=== PATIENT | male | born 1970 | race Two or more races ===

== ENCOUNTER 2021-10-06 01:02 | Inpatient (IN) | payer MEDICAID ==
[~2021-10-06] VITALS: Ht 175.3 cm; Wt 93.6 kg
[2021-10-06 02:24] LABS: Basophils # (auto) 0.2 10 ^3/uL (0-0.2); Basophils % (auto) 2.1 % (0.0-2.0); Eosinophils # (auto) 0.3 10 ^3/uL (0-0.8); Eosinophils % (auto) 3.9 % (0.0-7.0); Hematocrit 47.6 % (41.0-53.0); Hemoglobin 16.5 g/dL (13.5-17.5); Lymphocytes # (auto) 1.8 10 ^3/uL (0.4-5.4); Lymphocytes % (auto) 23.2 % (10.0-50.0); Mean Corpuscular Hemoglobin 32.6 pg (28.0-32.0); Mean Corpuscular Hgb Conc. 34.7 g/dL (32.0-36.0); Mean Corpuscular Volume 93.9 fL (80.0-100.0); Monocytes # (auto) 0.6 10 ^3/uL (0-1.3); Monocytes % (auto) 8.2 % (0.0-12.0); Neutrophils # (auto) 4.9 10 ^3/uL (1.6-8.6); Neutrophils % (auto) 62.6 % (37.0-80.0); Nucleated Red Blood Cells % 0.1 %; Red Blood Cells 5.07 10^6/uL (4.5-5.90); Red Cell Distribution Width 13.7 % (11.8-14.3); White Blood Cell 7.8 10^3/uL (4.4-10.8)
[2021-10-06 02:41] LABS: BUN/Creatinine Ratio 13.9; Potassium 3.9 mmol/L (3.5-5.1)
[2021-10-06 02:44] LABS: Bilirubin, Total 0.5 mg/dL (0.2-1.0); Total Protein 7.6 g/dL (6.4-8.2)
[2021-10-06] MEDS ORDERED: amLODIPine BESYLATE 5 MG TAB PO ONE (02:45)
[2021-10-06] MEDS ORDERED: LABETALOL HCL 5 MG/ML 4ML SYRINGE IV ONE (03:30)
[2021-10-06] MEDS ORDERED: InsuLIN REG 1unit/0.01ml Soln (100units/ml) IV ONE (03:30)
[2021-10-06] MEDS ORDERED: ASPirin 325 MG TAB PO ONE (03:45)
[2021-10-06] MEDS ORDERED: MORPHINE SULFATE INJ 2 MG/ml SYRG IV PRN (04:00)
[2021-10-06] MEDS ORDERED: DEXTROSE (50%) 50ML SYRG IV PRN (04:00)
[2021-10-06] MEDS ORDERED: ACETAMINOPHEN 325 MG TAB PO PRN (04:00)
[2021-10-06] MEDS ORDERED: MORPHINE SULFATE 4 MG/ML SYR/VIAL IV PRN (04:00)
[2021-10-06] MEDS ORDERED: ONDANSETRON HCL 4 MG/2 ML VIAL IV PRN (04:00)
[2021-10-06] MEDS: ACCU-CHEK COMFORT CURVE STRIP VI SCH ×5 (04:00→20:00)
[2021-10-06] MEDS: SODIUM CHLORIDE 0.9% 1,000 ML IV SCH ×2 (04:00→05:00)
[2021-10-06] MEDS ORDERED: NITROGLYCERIN 0.4 MG SL TAB SL PRN ×2 (04:00)
[2021-10-06] MEDS ORDERED: ZOLPIDEM TARTRATE 5 MG TAB PO PRN (04:00)
[2021-10-06] MEDS ORDERED: LORazepam 0.5 MG TAB PO PRN (04:00)
[2021-10-06] MEDS: InsuLIN REG 1unit/0.01ml Soln (100units/ml) SC SCH ×5 (05:00→20:00)
[2021-10-06 09:06] LABS: Basophils # (auto) 0.2 10 ^3/uL (0-0.2); Basophils % (auto) 2.3 % (0.0-2.0); Eosinophils # (auto) 0.2 10 ^3/uL (0-0.8); Eosinophils % (auto) 2.5 % (0.0-7.0); Hematocrit 46.9 % (41.0-53.0); Lymphocytes # (auto) 1.2 10 ^3/uL (0.4-5.4); Lymphocytes % (auto) 13.7 % (10.0-50.0); Mean Corpuscular Hemoglobin 31.9 pg (28.0-32.0); Mean Corpuscular Hgb Conc. 34.1 g/dL (32.0-36.0); Mean Corpuscular Volume 93.6 fL (80.0-100.0); Monocytes # (auto) 0.5 10 ^3/uL (0-1.3); Monocytes % (auto) 5.2 % (0.0-12.0); Neutrophils # (auto) 6.7 10 ^3/uL (1.6-8.6); Neutrophils % (auto) 76.3 % (37.0-80.0); Red Blood Cells 5.01 10^6/uL (4.5-5.90); Red Cell Distribution Width 13.5 % (11.8-14.3); White Blood Cell 8.8 10^3/uL (4.4-10.8)
[2021-10-06 09:22] VITALS: BP 153/98
[2021-10-06 09:27] LABS: BUN/Creatinine Ratio 13.3; Calcium 8.5 mg/dL (8.5-10.1); Potassium 3.5 mmol/L (3.5-5.1)
[2021-10-06] MEDS ORDERED: CLOPIDOGREL BISULFATE 75 MG TAB PO SCH (10:00)
[2021-10-06] MEDS: ASPirin 81 mg TAB PO SCH (10:49)
[2021-10-06] MEDS: DOCUSATE SOD 100 MG CAP PO SCH (10:49)
[2021-10-06] MEDS: METOPROLOL TARTRATE 25 MG TAB PO SCH ×2 (10:51→22:42)
[2021-10-06] MEDS: LISINOPRIL 10 MG TAB PO SCH (10:51)
[2021-10-06] MEDS: ENOXAPARIN SOD 80 MG/0.8ML SYRINGE SC SCH ×2 (10:52→22:32)
[2021-10-06 11:01] VITALS: BP 159/98
[2021-10-06 11:55] VITALS: BP 164/107
[2021-10-06 16:00] VITALS: BP_SYST 147; BP_SYST 161; BP_DIAS 105; BP_DIAS 106
[2021-10-06] MEDS ORDERED: METF-370 PO (18:36)
[2021-10-06] MEDS ORDERED: ENAL2.5T7 PO (18:36)
[2021-10-06 22:00] VITALS: BP 160/102
[2021-10-06] MEDS ORDERED: INSULIN LANTUS (GLARGINE) 1 /0.01ml (100units/ml) SC SCH (22:00)
[2021-10-06] MEDS ORDERED: ATORVASTATIN 20 MG TAB PO SCH (22:00)
[2021-10-07] VITALS: BP 131/60
[2021-10-07] MEDS: InsuLIN REG 1unit/0.01ml Soln (100units/ml) SC SCH ×5 (01:08→16:11)
[2021-10-07] MEDS: SODIUM CHLORIDE 0.9% 1,000 ML IV SCH (03:54)
[2021-10-07] MEDS: ACCU-CHEK COMFORT CURVE STRIP VI SCH ×5 (03:55→15:51)
[2021-10-07 05:00] VITALS: BP 150/103
[2021-10-07 08:00] VITALS: BP 163/110
[2021-10-07] MEDS: ASPirin 81 mg TAB PO SCH (09:31)
[2021-10-07] MEDS: ENOXAPARIN SOD 80 MG/0.8ML SYRINGE SC SCH (09:31)
[2021-10-07] MEDS: LISINOPRIL 10 MG TAB PO SCH (09:32)
[2021-10-07] MEDS: DOCUSATE SOD 100 MG CAP PO SCH (09:32)
[2021-10-07] MEDS: METOPROLOL TARTRATE 25 MG TAB PO SCH (09:33)
[2021-10-07] MEDS ORDERED: amLODIPine BESYLATE 5 MG TAB PO SCH (10:00)
[2021-10-07] MEDS ORDERED: hydrALAZINE HCL 20 MG/ML VL IV PRN (12:00)
[2021-10-07 13:00] VITALS: BP 148/102
[2021-10-07] MEDS ORDERED: ATOR20TA50 PO (13:05)
[2021-10-07] MEDS ORDERED: LISI-716 PO (13:05)
[2021-10-07] MEDS ORDERED: METF-370 PO (13:05)
[2021-10-07] MEDS ORDERED: ASPI-325 PO (13:05)
[2021-10-07] MEDS ORDERED: MET25T PO (13:05)
[2021-10-07] MEDS ORDERED: AML5T PO (13:05)
[2021-10-07 16:00] VITALS: BP 146/102
[2021-10-07 17:26] VITALS: BP 146/102
[2021-10-08] MEDS ORDERED: LISINOPRIL 10 MG TAB PO SCH (10:00)
== END 2021-10-07 18:18 | disposition home or self-care (01) | DRG 420 ==
LOC: ER 01:02 → TELE 03:59 → TELE-CENTR 08:11 → TELE-WESTW 18:07
PROVIDERS: ADMIT Hospitalist; ATTEND Family Medicine
DX: E11.65 Type 2 diabetes mellitus with hyperglycemia (principal); E66.9 Obesity, unspecified; R77.8 Other specified abnormalities of plasma proteins; I10 Essential (primary) hypertension; Z20.822 Contact with and (suspected) exposure to COVID-19; Z68.30 Body mass index [BMI] 30.0-30.9, adult
CPT/HCPCS: 36415; 71045; 80048; 80053; 82962; 83036; 84484; 85025; 93005; 93306; 96374; 96375; 99291; G0378; J1815; J3490

== ENCOUNTER 2021-12-29 01:05 | Inpatient (IN) | payer MEDICAID ==
[~2021-12-29] VITALS: Ht 170.2 cm; Wt 91.0 kg
[~2021-12-29 01:05] MED LIST: AML5T PO; ASPI-325 PO; ATOR20TA50 PO; LISI-716 PO; MET25T PO; METF-370 PO
[2021-12-29 01:36] LABS: Basophils # (auto) 0.1 10 ^3/uL (0-0.2); Eosinophils # (auto) 0.3 10 ^3/uL (0-0.8); Eosinophils % (auto) 2.2 % (0.0-7.0); Hematocrit 46.4 % (41.0-53.0); Lymphocytes # (auto) 2.1 10 ^3/uL (0.4-5.4); Lymphocytes % (auto) 17.7 % (10.0-50.0); Mean Corpuscular Hemoglobin 32.1 pg (28.0-32.0); Mean Corpuscular Hgb Conc. 34.5 g/dL (32.0-36.0); Mean Corpuscular Volume 93.1 fL (80.0-100.0); Monocytes # (auto) 0.6 10 ^3/uL (0-1.3); Monocytes % (auto) 5.1 % (0.0-12.0); Neutrophils # (auto) 8.7 10 ^3/uL (1.6-8.6); Nucleated Red Blood Cells % 0.1 %; Red Blood Cells 4.99 10^6/uL (4.5-5.90); Red Cell Distribution Width 13.7 % (11.8-14.3); White Blood Cell 11.7 10^3/uL (4.4-10.8)
[2021-12-29 01:57] LABS: Albumin 3.9 g/dL (3.4-5.0); Magnesium 1.9 mg/dL (1.6-2.6)
[2021-12-29 02:00] LABS: Bilirubin, Total 0.5 mg/dL (0.2-1.0); Total Protein 7.7 g/dL (6.4-8.2)
[2021-12-29] MEDS ORDERED: MORPHINE SULFATE 4 MG/ML SYR/VIAL IV ONE (04:30)
[2021-12-29] MEDS ORDERED: SODIUM CHLORIDE 0.9% 500 ML IV ONE (05:15)
[2021-12-29] MEDS ORDERED: ASPirin 81 mg TAB PO ONE (05:15)
[2021-12-29] MEDS ORDERED: SODIUM CHLORIDE 0.9% 1,000 ML IV SCH (07:30)
[2021-12-29] MEDS ORDERED: DEXTROSE (50%) 50ML SYRG IV PRN (07:30)
[2021-12-29] MEDS ORDERED: TEMAZEPAM 15 MG CAP PO PRN (07:30)
[2021-12-29] MEDS ORDERED: ACETAMINOPHEN 325 MG TAB PO PRN (07:30)
[2021-12-29] MEDS ORDERED: hydrALAZINE HCL 20 MG/ML VL IV PRN (07:30)
[2021-12-29] MEDS ORDERED: MORPHINE SULFATE INJ 2 MG/ml SYRG IV PRN ×2 (07:30→07:45)
[2021-12-29] MEDS ORDERED: ONDANSETRON HCL 4 MG/2 ML VIAL IV PRN (07:30)
[2021-12-29] MEDS ORDERED: DOCUSATE SOD 100 MG CAP PO PRN (07:30)
[2021-12-29] MEDS ORDERED: NITROGLYCERIN 0.4 MG SL TAB SL PRN (07:45)
[2021-12-29 08:02] LABS: Basophils # (auto) 0.1 10 ^3/uL (0-0.2); Basophils % (auto) 1.1 % (0.0-2.0); Eosinophils # (auto) 0.2 10 ^3/uL (0-0.8); Eosinophils % (auto) 2.3 % (0.0-7.0); Hematocrit 44.3 % (41.0-53.0); Hemoglobin 14.9 g/dL (13.5-17.5); Lymphocytes # (auto) 2.3 10 ^3/uL (0.4-5.4); Lymphocytes % (auto) 27.4 % (10.0-50.0); Mean Corpuscular Hemoglobin 31.4 pg (28.0-32.0); Mean Corpuscular Hgb Conc. 33.7 g/dL (32.0-36.0); Mean Corpuscular Volume 93.1 fL (80.0-100.0); Monocytes # (auto) 0.5 10 ^3/uL (0-1.3); Neutrophils # (auto) 5.3 10 ^3/uL (1.6-8.6); Neutrophils % (auto) 63.2 % (37.0-80.0); Nucleated Red Blood Cells % 0.1 %; Red Blood Cells 4.76 10^6/uL (4.5-5.90); Red Cell Distribution Width 13.6 % (11.8-14.3); White Blood Cell 8.4 10^3/uL (4.4-10.8)
[2021-12-29 08:17] LABS: Potassium 3.9 mmol/L (3.5-5.1)
[2021-12-29 08:25] LABS: Albumin 3.7 g/dL (3.4-5.0); Bilirubin, Total 0.6 mg/dL (0.2-1.0); Calcium 8.8 mg/dL (8.5-10.1); Total Protein 7.6 g/dL (6.4-8.2)
[2021-12-29] MEDS: HYDROcodone-ACET 5/325MG TAB PO PRN ×2 (08:28→23:01)
[2021-12-29] MEDS: METOPROLOL TARTRATE 25 MG TAB PO SCH ×2 (09:49→22:57)
[2021-12-29] MEDS: ASPirin 81 mg TAB PO SCH (09:50)
[2021-12-29] MEDS: InsuLIN REG 1unit/0.01ml Soln (100units/ml) SC SCH ×3 (11:04→23:24)
[2021-12-29] MEDS: ACCU-CHEK COMFORT CURVE STRIP VI SCH ×3 (11:07→22:00)
[2021-12-29 17:37] LABS: Cholesterol 154 mg/dL (< 200); HDL Cholesterol 56 mg/dL (40-59); LDL Cholesterol 85 mg/dL (< 100); Triglycerides 121 mg/dL (< 150)
[2021-12-29 22:26] LABS: Alcohol, Urine < 3.0 mg/dL (0-10); Amphetamine Screen, Urine NEGATIVE (NEGATIVE); Barbiturate Scree,Urine NEGATIVE (NEGATIVE); Benzodiazephine Screen, Urine NEGATIVE (NEGATIVE); Cannabinoid Screen, Urine NEGATIVE (NEGATIVE); Cocaine Screen, Urine NEGATIVE (NEGATIVE); Opiate Scree,Urine NEGATIVE (NEGATIVE); Phencyclidine Screen, Urine NEGATIVE (NEGATIVE)
[2021-12-29] MEDS: ATORVASTATIN 20 MG TAB PO SCH (22:56)
[2021-12-29] MEDS: PANTOPRAZOLE 40 MG/10 ML VIAL INJ IV SCH (23:24)
[2021-12-30] MEDS: SUCRALFATE 1 GM/10 ML ORAL SUSP PO SCH ×3 (05:38→17:13)
[2021-12-30] MEDS: ACCU-CHEK COMFORT CURVE STRIP VI SCH ×4 (05:40→21:06)
[2021-12-30] MEDS: InsuLIN REG 1unit/0.01ml Soln (100units/ml) SC SCH ×4 (05:58→21:59)
[2021-12-30 06:04] LABS: Basophils # (auto) 0.1 10 ^3/uL (0-0.2); Basophils % (auto) 2.2 % (0.0-2.0); Eosinophils # (auto) 0.3 10 ^3/uL (0-0.8); Eosinophils % (auto) 4.7 % (0.0-7.0); Hematocrit 46.3 % (41.0-53.0); Hemoglobin 15.7 g/dL (13.5-17.5); Lymphocytes # (auto) 2.2 10 ^3/uL (0.4-5.4); Lymphocytes % (auto) 33.1 % (10.0-50.0); Mean Corpuscular Hemoglobin 31.6 pg (28.0-32.0); Mean Corpuscular Volume 93.2 fL (80.0-100.0); Monocytes # (auto) 0.5 10 ^3/uL (0-1.3); Monocytes % (auto) 7.1 % (0.0-12.0); Neutrophils # (auto) 3.5 10 ^3/uL (1.6-8.6); Neutrophils % (auto) 52.9 % (37.0-80.0); Nucleated Red Blood Cells % 0.2 %; Red Blood Cells 4.97 10^6/uL (4.5-5.90); Red Cell Distribution Width 13.6 % (11.8-14.3); White Blood Cell 6.6 10^3/uL (4.4-10.8)
[2021-12-30 06:23] LABS: Calcium 8.5 mg/dL (8.5-10.1)
[2021-12-30 06:26] LABS: Albumin 3.3 g/dL (3.4-5.0)
[2021-12-30 06:29] LABS: Bilirubin, Total 0.8 mg/dL (0.2-1.0); Total Protein 6.6 g/dL (6.4-8.2)
[2021-12-30] MEDS: PANTOPRAZOLE 40 MG/10 ML VIAL INJ IV SCH ×2 (09:57→21:53)
[2021-12-30] MEDS: METOPROLOL TARTRATE 25 MG TAB PO SCH ×2 (09:58→21:52)
[2021-12-30] MEDS: ASPirin 81 mg TAB PO SCH (09:59)
[2021-12-30] MEDS: HYDROcodone-ACET 5/325MG TAB PO PRN (09:59)
[2021-12-30 12:07] VITALS: BP 148/93
[2021-12-30 12:33] VITALS: BP 148/93
[2021-12-30 16:40] VITALS: BP 139/84
[2021-12-30 20:21] VITALS: BP 148/93
[2021-12-30] MEDS: ATORVASTATIN 20 MG TAB PO SCH (21:53)
[2021-12-30 22:00] VITALS: BP 144/96
[2021-12-31 05:00] VITALS: BP 130/90
[2021-12-31] MEDS: SUCRALFATE 1 GM/10 ML ORAL SUSP PO SCH ×3 (06:01→17:14)
[2021-12-31] MEDS: ACCU-CHEK COMFORT CURVE STRIP VI SCH ×5 (06:01→21:45)
[2021-12-31] MEDS: InsuLIN REG 1unit/0.01ml Soln (100units/ml) SC SCH ×4 (06:05→21:59)
[2021-12-31 08:30] VITALS: BP 123/96
[2021-12-31] MEDS: HYDROcodone-ACET 5/325MG TAB PO PRN (08:49)
[2021-12-31] MEDS: PANTOPRAZOLE 40 MG/10 ML VIAL INJ IV SCH (08:55)
[2021-12-31] MEDS: METOPROLOL TARTRATE 25 MG TAB PO SCH ×2 (08:56→22:12)
[2021-12-31] MEDS: ASPirin 81 mg TAB PO SCH (08:56)
[2021-12-31 13:15] VITALS: BP 122/78
[2021-12-31] MEDS: GABAPENTIN 100 MG CAP PO SCH ×2 (15:15→21:45)
[2021-12-31] MEDS: MAGNESIUM SULFATE 1GM/100ML 100 ML IV SCH ×2 (16:08→17:14)
[2021-12-31 16:50] VITALS: BP 128/94
[2021-12-31] MEDS: ATORVASTATIN 20 MG TAB PO SCH (21:45)
[2021-12-31 22:00] VITALS: BP 166/95
[2022-01-01 05:00] VITALS: BP 138/92
[2022-01-01] MEDS: GABAPENTIN 100 MG CAP PO SCH ×2 (06:00→13:29)
[2022-01-01] MEDS: HYDROcodone-ACET 5/325MG TAB PO PRN ×2 (06:03→11:20)
[2022-01-01] MEDS: InsuLIN REG 1unit/0.01ml Soln (100units/ml) SC SCH ×2 (06:04→12:21)
[2022-01-01] MEDS: SUCRALFATE 1 GM/10 ML ORAL SUSP PO SCH ×2 (06:24→12:20)
[2022-01-01] MEDS ORDERED: ADENOSINE 76 MG in GIVE UN-DILUTED 0 ML IV STA (07:42)
[2022-01-01 08:00] VITALS: BP 135/94
[2022-01-01 08:54] VITALS: BP 131/94
[2022-01-01] MEDS ORDERED: PANTOPRAZOLE 40 MG TAB PO SCH (10:00)
[2022-01-01] MEDS: METOPROLOL TARTRATE 25 MG TAB PO SCH (10:06)
[2022-01-01] MEDS: ASPirin 81 mg TAB PO SCH (10:07)
[2022-01-01 12:00] VITALS: BP 142/90
[2022-01-01] MEDS: ACCU-CHEK COMFORT CURVE STRIP VI SCH (12:21)
[2022-01-01] MEDS ORDERED: METF-370 PO ×2 (14:42→15:25)
[2022-01-01] MEDS ORDERED: AML5T PO ×2 (14:42→15:25)
[2022-01-01] MEDS ORDERED: ATOR20TA50 PO ×2 (14:42→15:25)
[2022-01-01] MEDS ORDERED: GLIP5TAB12 PO ×2 (14:42→15:25)
[2022-01-01] MEDS ORDERED: PANT40T PO ×2 (14:42→15:25)
[2022-01-01] MEDS ORDERED: GAB100C PO ×2 (14:42→15:25)
[2022-01-01] MEDS ORDERED: LISI-716 PO ×2 (14:42→15:25)
[2022-01-01] MEDS ORDERED: ASPI-325 PO ×2 (14:42→15:25)
[2022-01-01] MEDS ORDERED: MET25T PO ×2 (14:42→15:25)
[2022-01-01 15:33] VITALS: BP 142/90
[2022-01-01 16:00] VITALS: BP 141/99
== END 2022-01-01 16:45 | disposition home or self-care (01) | DRG 190 ==
LOC: ER 01:05 → TELE 07:45 → TELE-WESTW 12-30 10:56
PROVIDERS: ADMIT Nurse Practitioner Family; ATTEND Hospitalist
DX: I21.4 Non-ST elevation (NSTEMI) myocardial infarction (principal); I47.2 Ventricular tachycardia; E11.42 Type 2 diabetes mellitus with diabetic polyneuropathy; E11.65 Type 2 diabetes mellitus with hyperglycemia; E78.5 Hyperlipidemia, unspecified; I11.9 Hypertensive heart disease without heart failure; I49.8 Other specified cardiac arrhythmias; K21.9 Gastro-esophageal reflux disease without esophagitis; Z82.49 Family history of ischemic heart disease and other diseases of the circulatory system; Z83.3 Family history of diabetes mellitus; Z20.822 Contact with and (suspected) exposure to COVID-19; Z79.84 Long term (current) use of oral hypoglycemic drugs; Z91.19 Patient's noncompliance with other medical treatment and regimen
CPT/HCPCS: 36415; 71045; 78452; 80053; 80061; 80307; 82150; 82962; 83036; 83690; 83735; 83880; 84484; 85025; 85379; 93005; 93017; 96361; 96374; 96375; C9113; G0378; J0153; J1815; J2405

== ENCOUNTER 2022-05-15 10:06 | Emergency (ER) | payer MEDICAID ==
[~2022-05-15] VITALS: Ht 167.6 cm; Wt 91.9 kg
[~2022-05-15 10:06] MED LIST changes: +GAB100C PO; +GLIP5TAB12 PO; +PANT40T PO
[2022-05-15 10:50] LABS: Basophils # (auto) 0.2 10 ^3/uL (0-0.2); Basophils % (auto) 2.1 % (0.0-2.0); Eosinophils # (auto) 0.4 10 ^3/uL (0-0.8); Eosinophils % (auto) 5.4 % (0.0-7.0); Hematocrit 47.8 % (41.0-53.0); Hemoglobin 16.1 g/dL (13.5-17.5); Lymphocytes # (auto) 2.3 10 ^3/uL (0.4-5.4); Lymphocytes % (auto) 28.4 % (10.0-50.0); Mean Corpuscular Hemoglobin 31.4 pg (28.0-32.0); Mean Corpuscular Hgb Conc. 33.6 g/dL (32.0-36.0); Mean Corpuscular Volume 93.6 fL (80.0-100.0); Monocytes # (auto) 0.5 10 ^3/uL (0-1.3); Monocytes % (auto) 5.9 % (0.0-12.0); Neutrophils # (auto) 4.8 10 ^3/uL (1.6-8.6); Neutrophils % (auto) 58.2 % (37.0-80.0); Nucleated Red Blood Cells % 0.1 %; Red Blood Cells 5.11 10^6/uL (4.5-5.90); Red Cell Distribution Width 13.6 % (11.8-14.3); White Blood Cell 8.2 10^3/uL (4.4-10.8)
[2022-05-15 11:06] LABS: Albumin 3.9 g/dL (3.4-5.0); Calcium 8.9 mg/dL (8.5-10.1); Potassium 4.1 mmol/L (3.5-5.1)
[2022-05-15] MEDS ORDERED: NITROGLYCERIN 0.4 MG SL TAB SL ONE (13:15)
[2022-05-15] MEDS ORDERED: ASPirin 325 MG TAB PO ONE (13:15)
[2022-05-15 13:52] VITALS: BP 134/92
[2022-05-15 16:47] LABS: BUN/Creatinine Ratio 16.1; Bilirubin, Total 0.6 mg/dL (0.2-1.0); Total Protein 7.5 g/dL (6.4-8.2)
== END 2022-05-16 00:45 | disposition home or self-care (01) ==
LOC: ER 10:06
DX: R20.0 Anesthesia of skin (principal); E11.9 Type 2 diabetes mellitus without complications; I10 Essential (primary) hypertension; Z79.899 Other long term (current) drug therapy
CPT/HCPCS: 36415; 71045; 80053; 83735; 84484; 85025; 93005

== ENCOUNTER 2022-06-05 11:54 | Emergency (ER) | payer MEDICAID ==
[~2022-06-05] VITALS: Ht 167.6 cm; Wt 90.2 kg
[2022-06-05 13:28] LABS: Basophils # (auto) 0.1 10 ^3/uL (0-0.2); Basophils % (auto) 1.2 % (0.0-2.0); Eosinophils # (auto) 0.5 10 ^3/uL (0-0.8); Eosinophils % (auto) 4.4 % (0.0-7.0); Hematocrit 47.2 % (41.0-53.0); Hemoglobin 16.3 g/dL (13.5-17.5); Lymphocytes # (auto) 3.1 10 ^3/uL (0.4-5.4); Lymphocytes % (auto) 28.1 % (10.0-50.0); Mean Corpuscular Hemoglobin 31.9 pg (28.0-32.0); Mean Corpuscular Hgb Conc. 34.6 g/dL (32.0-36.0); Mean Corpuscular Volume 92.3 fL (80.0-100.0); Monocytes # (auto) 0.7 10 ^3/uL (0-1.3); Monocytes % (auto) 6.6 % (0.0-12.0); Neutrophils # (auto) 6.6 10 ^3/uL (1.6-8.6); Neutrophils % (auto) 59.7 % (37.0-80.0); Nucleated Red Blood Cells % 0.1 %; Red Blood Cells 5.11 10^6/uL (4.5-5.90); Red Cell Distribution Width 13.3 % (11.8-14.3); White Blood Cell 11.1 10^3/uL (4.4-10.8)
[2022-06-05 13:47] LABS: Albumin 4.1 g/dL (3.4-5.0); Calcium 9.1 mg/dL (8.5-10.1); Potassium 4.1 mmol/L (3.5-5.1)
[2022-06-05 13:51] LABS: BUN/Creatinine Ratio 18.6; Bilirubin, Total 0.4 mg/dL (0.2-1.0); Total Protein 7.6 g/dL (6.4-8.2)
[2022-06-05 13:55] LABS: INR 0.98 (0.9-1.15); Partial Thromboplastin Time 30.2 sec (24.6-33.4)
[2022-06-05 18:22] VITALS: BP 125/80
== END 2022-06-05 18:24 | disposition home or self-care (01) ==
LOC: ER 11:54
DX: H53.2 Diplopia (principal); R07.89 Other chest pain; I10 Essential (primary) hypertension; E11.9 Type 2 diabetes mellitus without complications; Z79.82 Long term (current) use of aspirin; Z79.899 Other long term (current) drug therapy
CPT/HCPCS: 36415; 70450; 71045; 80053; 83735; 83880; 84484; 85025; 85610; 85730